=== PATIENT | female | born 1945 | race Caucasian/White ===

== ENCOUNTER 2016-06-09 08:17 | Outpatient (CLI) | payer MEDICARE, OTHER | END 2016-06-09 08:20 | LOC: POD 08:17 | PROVIDERS: ATTEND Podiatrist Public Medicine | DX: E11.9 Type 2 diabetes mellitus without complications (principal); B35.1 Tinea unguium; L60.0 Ingrowing nail; M79.674 Pain in right toe(s); M79.675 Pain in left toe(s) | CPT/HCPCS: 11721; G0463 ==

== ENCOUNTER 2016-06-14 07:55 | Outpatient (CLI) | payer MEDICARE, OTHER | END 2016-06-14 07:56 | LOC: RT 07:55 | PROVIDERS: ATTEND Family Medicine | DX: R00.2 Palpitations (principal) | CPT/HCPCS: 93225 ==

== ENCOUNTER 2016-09-15 10:32 | Outpatient (CLI) | payer MEDICARE, OTHER | END 2016-09-15 10:33 | LOC: POD 10:32 | PROVIDERS: ATTEND Podiatrist Public Medicine | DX: B35.1 Tinea unguium (principal); L60.0 Ingrowing nail; M20.41 Other hammer toe(s) (acquired), right foot; M20.42 Other hammer toe(s) (acquired), left foot; M79.675 Pain in left toe(s); M79.674 Pain in right toe(s); E11.9 Type 2 diabetes mellitus without complications; M79.672 Pain in left foot; M79.671 Pain in right foot | CPT/HCPCS: 11721; G0463 ==

== ENCOUNTER 2016-12-15 10:13 | Outpatient (CLI) | payer MEDICARE, OTHER | END 2016-12-15 10:14 | LOC: POD 10:13 | PROVIDERS: ATTEND Podiatrist Public Medicine | DX: B35.1 Tinea unguium (principal); L60.0 Ingrowing nail; M79.674 Pain in right toe(s); M79.675 Pain in left toe(s); E11.9 Type 2 diabetes mellitus without complications; M20.41 Other hammer toe(s) (acquired), right foot; M20.42 Other hammer toe(s) (acquired), left foot; M76.71 Peroneal tendinitis, right leg; M76.72 Peroneal tendinitis, left leg | CPT/HCPCS: 11721; G0463 ==

== ENCOUNTER 2017-03-16 09:49 | Outpatient (CLI) | payer MEDICARE, OTHER | END 2017-03-16 10:00 | LOC: POD 09:49 | PROVIDERS: ATTEND Podiatrist Public Medicine | DX: M76.71 Peroneal tendinitis, right leg (principal); M76.72 Peroneal tendinitis, left leg; B35.1 Tinea unguium; E11.9 Type 2 diabetes mellitus without complications; L60.0 Ingrowing nail; M79.674 Pain in right toe(s); M79.675 Pain in left toe(s); M20.41 Other hammer toe(s) (acquired), right foot; M20.42 Other hammer toe(s) (acquired), left foot | CPT/HCPCS: 11721; G0463 ==

== ENCOUNTER 2017-08-17 08:11 | Outpatient (CLI) | payer MEDICARE, OTHER | END 2017-08-17 08:13 | LOC: POD 08:11 | PROVIDERS: ATTEND Podiatrist Public Medicine | DX: M76.71 Peroneal tendinitis, right leg (principal); M76.72 Peroneal tendinitis, left leg; B35.1 Tinea unguium; E11.9 Type 2 diabetes mellitus without complications; L60.0 Ingrowing nail; M79.674 Pain in right toe(s); M79.675 Pain in left toe(s); M20.41 Other hammer toe(s) (acquired), right foot; M20.42 Other hammer toe(s) (acquired), left foot | CPT/HCPCS: 11721; G0463 ==